=== PATIENT | male | born 1955 | race Caucasian/White ===

== ENCOUNTER 2019-02-24 22:19 | Emergency (ER) | payer MEDICARE, OTHER ==
[~2019-02-24] VITALS: Ht 170.2 cm; Wt 111.1 kg
--- NOTE | 2019-02-24 22:30 | NUR ---
ED Nurse Note: Recieved pt on bailee from sn[facility], pt sent here for c/o pain, pt has recent left foot amputation and states has pain, pt is angrily speaking about facility and states he does not want to go back there, pt also angry stating he does not see md daily over there, md sat and explained processes to pt, pt remains angry and shouting, pt placed on monitoring, is awake and alert, denies cp, no sob or labored breathing, pt has patene 2 lumen picc line in left ac area with vancomycin infusing via pump, ill monitor and resume care as ordered.
--- NOTE | 2019-02-24 23:06 | NUR ---
Spoke with nurse Nessa at [facility] several times, then called [facility], spoke with Lise. She is sending ambulance-30min to 1 hour. Nessa at [facility] made aware.
--- NOTE | 2019-02-24 23:18 | Emergency Room Report ---
History of Present Illness General Chief Complaint: Pain Source: Patient Present Illness HPI This is a 63-year-old male with a history of lymphedema and cellulitis. He was sent in by assisted from [facility] because complaining of leg pain. He wants to go back to the hospital. He was recently discharged from [facility]. They mistakenly sent him here because he said he wants to go to [facility]. What he meant was that he went to go back to the other hospital. He was not happy with the assisted because he is not getting enough attention and pain medication. He has chronic pain. He is currently getting IV vancomycin there and Zosyn there. He has no new issue. No fever chills but no nausea no vomiting. Recent lab done yesterday was normal. Allergies: Coded Allergies: No Known Allergies (Unverified , 02/24/19) Patient History Past Medical History: see triage record, old chart reviewed Past Surgical History: other Pertinent Family History: none Social History: Denies: smoking Immunizations: other Reviewed Nursing Documentation: PMH: Agreed; PSxH: Agreed Nursing Documentation-PMH Past Medical History: No History, Except For Hx Hypertension: Yes Review of Systems Eye: Denies: eye pain, blurred vision ENT: Denies: ear pain, nose congestion, throat swelling Respiratory: Denies: cough, shortness of breath Cardiovascular: Denies: chest pain, palpitations Gastrointestinal: Denies: abdominal pain, diarrhea, nausea, vomiting Musculoskeletal: Reports: muscle pain; Denies: back pain, joint pain Skin: Denies: rash Neurological: Denies: headache, numbness Endocrine: Denies: increased thirst, increased urine Hematologic/Lymphatic: Denies: easy bruising All Other Systems: negative except mentioned in HPI Physical Exam Vital Signs Date Time Temp Pulse Resp B/P (MAP) Pulse Ox O2 Delivery O2 Flow Rate FiO2 02/24/19 22:20 98.4 83 20 114/74 (87) 98 Room Air Vitals normal Sp02 EP Interpretation: reviewed, normal General Appearance: well appearing, no apparent distress, alert Head: normocephalic, atraumatic Eyes: bilateral eye PERRL, bilateral eye EOMI ENT: hearing grossly normal, normal pharynx Neck: full range of motion, supple, no meningismus Respiratory: chest non-tender, lungs clear, normal breath sounds Cardiovascular #1: regular rate, rhythm, no murmur Gastrointestinal: normal bowel sounds, non tender, no mass, no organomegaly, no bruit, non-distended Musculoskeletal: back normal, normal range of motion, other - Has chronic lymphedema. He has transmetatarsal amputation of left foot. Foot is wrapped in dressing. Psychiatric: mood/affect normal Medical Decision Making Diagnostic Impression: Primary Impression: Chronic pain Qualified Codes: G89.4 - Chronic pain syndrome ER Course Patient with exacerbation of his chronic pain. He is comfortable. I suspect that his main issue is that he want to be in the hospital. I called the assisted and they are willing to take him back. I see no need for blood work since patient just had it done 2 days ago and they were unremarkable. He is already taking Zosyn and vancomycin. She claimed that he did not get any pain medication at the assisted but he received a gram of Dilaudid already. I will send him back to the assisted. The no criteria for admission or transfer to [facility]. Last Vital Signs Date Time Temp Pulse Resp B/P (MAP) Pulse Ox O2 Delivery O2 Flow Rate FiO2 02/24/19 22:20 98.4 83 20 114/74 (87) 98 Room Air Status: unchanged Disposition: XFER SNF Condition: Stable Additional Instructions: Follow up with your doctor in 7 days. Continue with current management. Return if worsen. Matt Rutherford MD Feb 24, 2019 23:18
[2019-02-25] VITALS: BP 121/79
--- NOTE | 2019-02-25 | NUR ---
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
== END 2019-02-25 00:05 ==
LOC: EDBD 22:19 → EMR 22:39
DX: G89.4 Chronic pain syndrome (principal); M79.605 Pain in left leg; M79.604 Pain in right leg
CPT/HCPCS: 99283